=== PATIENT | female | born 1975 | race Caucasian/White ===

== ENCOUNTER 2017-01-24 16:09 | Emergency (ER) | payer SELFPAY ==
[~2017-01-24] VITALS: Ht 157.5 cm; Wt 78.0 kg
[2017-01-24 16:13] VITALS: Ht 157.5 cm; Wt 78.0 kg
== END 2017-01-24 17:05 | disposition left against medical advice (07) ==
LOC: FTE 16:09
DX: Z53.21 Procedure and treatment not carried out due to patient leaving prior to being seen by health care provider (principal)